=== PATIENT | female | born 1990 ===

== ENCOUNTER 2018-10-07 06:51 | Emergency (ER) | payer MEDICAID, OTHER ==
[2018-10-07 07:58] LABS: Basophils # (Auto) 0.1 K/mm3 (0.0-0.1); Basophils % (Auto) 0.6 % (0.0-1.8); Eosinophils % (Auto) 0.2 % (0.0-4.3); Hematocrit 41.9 % (30.3-42.9); Hemoglobin 14.4 gm/dl (10.1-14.3); Lymphocytes # (Auto) 1.3 K/mm3 (1.2-5.4); Mean Corpuscular HGB Conc 34 % (30-34); Mean Corpuscular Volume 89 fl (79-97); Monocytes # (Auto) 0.8 K/mm3 (0.0-0.8); Monocytes % (Auto) 5.3 % (0.0-7.3); Platelet Count 326 K/mm3 (140-440); Red Blood Count 4.72 M/mm3 (3.65-5.03); Red Cell Distribution Width 14.2 % (13.2-15.2)
[2018-10-07] MEDS ORDERED: NACL 0.9% 1000 ML 1,000 ML IV ONE (08:05)
[2018-10-07] MEDS ORDERED: ZOFRAN IV ONE (08:05)
[2018-10-07 08:08] LABS: Alanine Aminotransferase 20 units/L (7-56); Albumin 4.2 g/dL (3.9-5); BUN/Creatinine Ratio 28; Blood Urea Nitrogen 17 mg/dL (7-17); Calcium 9.1 mg/dL (8.4-10.2); Hemolysis Index 1
[2018-10-07 08:18] LABS: Bilirubin,Urine NEG (Negative); Blood,Urine MOD (Negative); Color,Urine Yellow (Yellow); Hyaline Casts,Urine 1 /LPF; Mucus,Urine FEW /HPF; Protein,Urine <15 mg/dL mg/dL (Negative); Urobilinogen,Urine < 2.0 mg/dL (<2.0)
[2018-10-07] MEDS ORDERED: MORPHINE IV ONE (08:33)
[2018-10-07] MEDS ORDERED: TORADOL IV ONE (08:33)
--- NOTE | 2018-10-07 09:18 | Emergency Department Report ---
ED Abdominal Pain HPI - General Chief Complaint: Abdominal Pain Stated Complaint: ABD PAIN/V/D Time Seen by Provider: 10/07/18 08:05 Source: patient, family Mode of arrival: Ambulatory Limitations: Language Barrier - History of Present Illness Initial Comments: 27-year-old female with no significant past medical history exception of the previous presents to the hospital complaints of waking up at 1 AM with left-sided abdominal pain. The pain woke her up and is rated 9/10 and intensity, cramping, intermittent, and worse with palpation. Patient has had 4 episodes of nausea, vomiting, and diarrhea since symptom onset. She denies melena, hematochezia, or hematemesis. She is having chills and feeling hot without documented fever. She denies recent travel, sick contacts, hematuria, or dysuria. - Related Data Home Medications Medication Instructions Recorded Confirmed Last Taken Pnv with Ca,No.71/Iron/FA 1 tab PO DAILY 04/12/13 04/12/13 04/10/13 11:00 [Prenaplus Tablet] Previous Rx's Medication Instructions Recorded Last Taken Type Ferrous Sulfate [Feosol 325 MG tab] 325 mg PO BID #60 tablet 04/12/13 Unknown Rx HYDROcodone/APAP 5-325 [[place] 1 each PO Q6HR PRN #30 tablet 04/12/13 Unknown Rx 5/325 mg] Ibuprofen [Motrin] 800 mg PO TID PRN #30 tablet 04/12/13 Unknown Rx Nvy225/Iron Fum/Folic/Docusate 1 each PO QDAY #30 tablet 04/12/13 Unknown Rx [ 19 Tablet] Cyclobenzaprine [Flexeril] 10 mg PO TID PRN #14 tablet 08/03/13 Unknown Rx Ibuprofen [Motrin] 800 mg PO Q8H PRN #20 tablet 08/03/13 Unknown Rx Loperamide [Imodium] 2 mg PO Q2HR PRN #15 capsule 10/07/18 Unknown Rx Ondansetron [Zofran Odt] 4 mg PO Q8HR PRN #20 tab.rapdis 10/07/18 Unknown Rx traMADol [Ultram 50 MG tab] 50 mg PO Q6HR PRN #20 tablet 10/07/18 Unknown Rx Allergies Allergy/AdvReac Type Severity Reaction Status Date / Time No Known Allergies Allergy Verified 04/12/13 00:56 ED Review of Systems ROS: Stated complaint: ABD PAIN/V/D Other details as noted in HPI Comment: All other systems reviewed and negative ED Past Medical Hx - Past Medical History Previous Medical History?: No Hx Hypertension: No Hx Diabetes: No Hx Deep Vein Thrombosis: No Hx Renal Disease: No Hx Sickle Cell Disease: No Hx Seizures: No Hx Asthma: No Hx HIV: No - Surgical History Past Surgical History?: Yes Additional Surgical History: x 3 - Social History Smoking Status: Never Smoker - Medications Home Medications: Home Medications Medication Instructions Recorded Confirmed Last Taken Type Ferrous Sulfate [Feosol 325 MG tab] 325 mg PO BID #60 tablet 04/12/13 Unknown Rx HYDROcodone/APAP 5-325 [[place] 1 each PO Q6HR PRN #30 tablet 04/12/13 Unknown Rx 5/325 mg] Ibuprofen [Motrin] 800 mg PO TID PRN #30 tablet 04/12/13 Unknown Rx Pnv with Ca,No.71/Iron/FA 1 tab PO DAILY 04/12/13 04/12/13 04/10/13 11:00 History [Prenaplus Tablet] Ucr128/Iron Fum/Folic/Docusate 1 each PO QDAY #30 tablet 04/12/13 Unknown Rx [ 19 Tablet] Cyclobenzaprine [Flexeril] 10 mg PO TID PRN #14 tablet 08/03/13 Unknown Rx Ibuprofen [Motrin] 800 mg PO Q8H PRN #20 tablet 08/03/13 Unknown Rx Loperamide [Imodium] 2 mg PO Q2HR PRN #15 capsule 10/07/18 Unknown Rx Ondansetron [Zofran Odt] 4 mg PO Q8HR PRN #20 tab.rapdis 10/07/18 Unknown Rx traMADol [Ultram 50 MG tab] 50 mg PO Q6HR PRN #20 tablet 10/07/18 Unknown Rx ED Physical Exam - General Limitations: Language Barrier - Other Other exam information: General: No limitations, patient is alert in no acute distress Head exam: Atraumatic, normocephalic Eyes exam: Normal appearance, pupils equal reactive to light, extraocular movements intact ENT: Moist mucous membrane, normal oropharynx Neck exam: Normal inspection, full range of motion, no meningismus nontender Respiratory exam: Clear to auscultation bilateral, no wheezes, rales, crackles Cardiovascular: Normal rate and rhythm, normal heart sounds Abdomen: Soft, nondistended, and nontender, with normal bowel sounds, no rebound, or guarding Extremity: Full range of motion normal inspection no deformity Back: Normal Inspection, full range of motion, no tenderness Neurologic: Alert, oriented x3, cranial nerves intact, no motor or sensory deficit Psychiatric: normal affect, normal mood Skin: Warm, dry, intact ED Course Vital Signs 10/07/18 10/07/18 10/07/18 07:24 08:02 10:01 Temperature 99.2 F Pulse Rate 124 H 97 H Respiratory 20 17 Rate Blood Pressure 140/65 Blood Pressure 115/67 [Left] O2 Sat by Pulse 98 97 97 Oximetry ED Medical Decision Making - Lab Data Result diagrams: 10/07/18 07:35 10/07/18 07:35 Lab Results 10/07/18 10/07/18 10/07/18 Range/Units 07:35 07:35 07:35 WBC 14.4 H (4.5-11.0) K/mm3 RBC 4.72 (3.65-5.03) M/mm3 Hgb 14.4 H (10.1-14.3) gm/dl Hct 41.9 (30.3-42.9) % MCV 89 (79-97) fl MCH 31 (28-32) pg MCHC 34 (30-34) % RDW 14.2 (13.2-15.2) % Plt Count 326 (140-440) K/mm3 Lymph % (Auto) 9.0 L (13.4-35.0) % [place] % (Auto) 5.3 (0.0-7.3) % Eos % (Auto) 0.2 (0.0-4.3) % Baso % (Auto) 0.6 (0.0-1.8) % Lymph # 1.3 (1.2-5.4) K/mm3 [place] # 0.8 (0.0-0.8) K/mm3 Eos # 0.0 (0.0-0.4) K/mm3 Baso # 0.1 (0.0-0.1) K/mm3 Seg Neutrophils % 84.9 H (40.0-70.0) % Seg Neutrophils # 12.2 H (1.8-7.7) K/mm3 Sodium 134 L (137-145) mmol/L Potassium 4.0 (3.6-5.0) mmol/L Chloride 98.5 (98-107) mmol/L Carbon Dioxide 23 (22-30) mmol/L Anion Gap 17 mmol/L BUN 17 (7-17) mg/dL Creatinine 0.6 L (0.7-1.2) mg/dL Estimated GFR > 60 ml/min BUN/Creatinine Ratio 28 % Glucose 102 H (65-100) mg/dL Calcium 9.1 (8.4-10.2) mg/dL Total Bilirubin 0.40 (0.1-1.2) mg/dL AST 16 (5-40) units/L ALT 20 (7-56) units/L Alkaline Phosphatase 80 (35-129) units/L Total Protein 8.2 (6.3-8.2) g/dL Albumin 4.2 (3.9-5) g/dL Albumin/Globulin Ratio 1.1 % Lipase 23 (13-60) units/L HCG, Qual Negative (Negative) Urine Color (Yellow) Urine Turbidity (Clear) Urine pH (5.0-7.0) Ur Specific [place] (1.003-1.030) Urine Protein (Negative) mg/dL Urine Glucose (UA) (Negative) mg/dL Urine Ketones (Negative) mg/dL Urine Blood (Negative) Urine Nitrite (Negative) Urine Bilirubin (Negative) Urine Urobilinogen (<2.0) mg/dL Ur Leukocyte Esterase (Negative) Urine WBC (Auto) (0.0-6.0) /HPF Urine RBC (Auto) (0.0-6.0) /HPF U Epithel Cells (Auto) (0-13.0) /HPF Hyaline Casts /LPF Urine Mucus /HPF 10/07/18 Range/Units 08:00 WBC (4.5-11.0) K/mm3 RBC (3.65-5.03) M/mm3 Hgb (10.1-14.3) gm/dl Hct (30.3-42.9) % MCV (79-97) fl MCH (28-32) pg MCHC (30-34) % RDW (13.2-15.2) % Plt Count (140-440) K/mm3 Lymph % (Auto) (13.4-35.0) % [place] % (Auto) (0.0-7.3) % Eos % (Auto) (0.0-4.3) % Baso % (Auto) (0.0-1.8) % Lymph # (1.2-5.4) K/mm3 [place] # (0.0-0.8) K/mm3 Eos # (0.0-0.4) K/mm3 Baso # (0.0-0.1) K/mm3 Seg Neutrophils % (40.0-70.0) % Seg Neutrophils # (1.8-7.7) K/mm3 Sodium (137-145) mmol/L Potassium (3.6-5.0) mmol/L Chloride (98-107) mmol/L Carbon Dioxide (22-30) mmol/L Anion Gap mmol/L BUN (7-17) mg/dL Creatinine (0.7-1.2) mg/dL Estimated GFR ml/min BUN/Creatinine Ratio % Glucose (65-100) mg/dL Calcium (8.4-10.2) mg/dL Total Bilirubin (0.1-1.2) mg/dL AST (5-40) units/L ALT (7-56) units/L Alkaline Phosphatase (35-129) units/L Total Protein (6.3-8.2) g/dL Albumin (3.9-5) g/dL Albumin/Globulin Ratio % Lipase (13-60) units/L HCG, Qual (Negative) Urine Color Yellow (Yellow) Urine Turbidity Slightly-cloudy (Clear) Urine pH 6.0 (5.0-7.0) Ur Specific [place] 1.019 (1.003-1.030) Urine Protein <15 mg/dl (Negative) mg/dL Urine Glucose (UA) Neg (Negative) mg/dL Urine Ketones Neg (Negative) mg/dL Urine Blood Mod (Negative) Urine Nitrite Neg (Negative) Urine Bilirubin Neg (Negative) Urine Urobilinogen < 2.0 (<2.0) mg/dL Ur Leukocyte Esterase Sm (Negative) Urine WBC (Auto) 4.0 (0.0-6.0) /HPF Urine RBC (Auto) 16.0 (0.0-6.0) /HPF U Epithel Cells (Auto) 6.0 (0-13.0) /HPF Hyaline Casts 1 /LPF Urine Mucus Few /HPF - Radiology Data Radiology results: report reviewed PROCEDURE: CT ABDOMEN PELVIS W CON TECHNIQUE: CT of the abdomen and pelvis was performed. IV contrast was administered. No oral contrast was administered. Portal venous and delayed phase imaging performed. Axial images and coronal and sagittal reformatted images were obtained. HISTORY: left abd pain n,v,d COMPARISON: None FINDINGS: The visualized lung bases are clear. The visualized liver, spleen, pancreas, adrenal glands and kidneys demonstrate no significant abnormality. There is no abdominal aortic aneurysm. There is no evidence for intestinal obstruction. There is some fluid in nondilated colon. This is nonspecific and can be caused by any diarrhea causing process. The appendix is normal. There is no abnormal fluid collection seen. There is no free intraperitoneal air. Bladder is unremarkable. There is no abnormal pelvic fluid collection or mass seen. IMPRESSION: There is fluid in nondilated colon. This is nonspecific and can be caused by any diarrhea causing process. There is no other significant finding. - Medical Decision Making Patient's symptoms improved with ED treatment. Patient tolerating by mouth. CT without acute findings. Mild leukocytosis noted. Diagnosis of gastroenteritis and symptomatic treatment will be provided. - Differential Diagnosis gastroenteritis, diverticulitis, appendicitis, UTI, , renal colic Critical Care Time: No Critical care attestation.: If time is entered above; I have spent that time in minutes in the direct care of this critically ill patient, excluding procedure time. ED Disposition Clinical Impression: Acute gastroenteritis Disposition: DC-01 TO HOME OR SELFCARE Is pt being admited?: No Does the pt Need Aspirin: No Condition: Stable Instructions: Gastroenteritis (ED) Additional Instructions: Take the medication as prescribed. Follow up with your doctor or the clinic/doctor provided. Return if symptoms worsen as indicated by your discharge instructions Prescriptions: Loperamide [Imodium] 2 mg PO Q2HR PRN #15 capsule PRN Reason: Diarrhea traMADol [Ultram 50 MG tab] 50 mg PO Q6HR PRN #20 tablet PRN Reason: Pain Ondansetron [Zofran Odt] 4 mg PO Q8HR PRN #20 tab.rapdis PRN Reason: Nausea And Vomiting Referrals: DEXTER JOAN ARVIZU MD [Primary Care Provider] - 3-5 Days SUSAN MONGE MD [Staff Physician] - 3-5 Days Time of Disposition: 12:07 Print Language: RUSSIAN
[2018-10-07 10:02] VITALS: BP 115/67
--- NOTE | 2018-10-07 11:17 | Cat Scan Report ---
PROCEDURE: CT ABDOMEN PELVIS W CON TECHNIQUE: CT of the abdomen and pelvis was performed. IV contrast was administered. No oral contrast was administered. Portal venous and delayed phase imaging performed. Axial images and coronal and sa gittal reformatted images were obtained. HISTORY: left abd pain n,v,d COMPARISON: None FINDINGS: The visualized lung bases are clear. The visualized liver, spleen, pancreas, adrenal glands and kidneys demonstrate no significant abnorma lity. There is no abdominal aortic aneurysm. There is no evidence for intestinal obstruction. There is some fluid in nondilated colon. This is nonspecific and can be caused by any diarrhea causin g process. The appendix is normal. There is no abnormal fluid collection seen. There is no free intraperitoneal air. Bladder is unremarkable. There is no abnormal pelvic fluid collection or mass seen. IMPRESSION: There is fluid in nondilated colon. This is nonspecific and can be caused by any diarrhea causing pro cess. There is no other significant finding. This document is electronically signed by Pamela Spencer MD., October 07 2018 11:15:58 AM ET
== END 2018-10-07 12:20 | disposition home or self-care (01) ==
LOC: ED 06:51
DX: K52.9 Noninfective gastroenteritis and colitis, unspecified (principal); Z79.899 Other long term (current) drug therapy
CPT/HCPCS: 36415; 74177; 80053; 81001; 83690; 84703; 85025; 96361; 96374; 96375; 99284; J1885; J2270; J2405; J7030; Q9967